=== PATIENT | female | born 1995 | race Caucasian/White ===

== ENCOUNTER → 2023-06-23 10:06 | Outpatient (REF) | payer BC, SELFPAY ==
[2023-06-23 11:19] LABS: ALT (SGPT) 20 U/L (0-35); AST (SGOT) 30 U/L (14-36); Albumin 4.3 g/dl (3.5-5.0); Alkaline Phosphatase 68 U/L (38-126); Blood Urea Nitrogen 14 mg/dl (7-17); Calcium 9.5 mg/dl (8.4-10.2); Carbon Dioxide 26 mmol/L (22-30); Chloride 103 mmol/L (98-107); Glucose 82 mg/dl (70-99); HDL Cholesterol 92 mg/dl; LDL Cholesterol, Calculated 48 mg/dl; Potassium 3.9 mmol/L (3.5-5.1); Sodium 138 mmol/L (135-145); Total Bilirubin 0.7 mg/dl (0.2-1.3); Total Cholesterol 151 mg/dl (50-199); Triglyceride 55 mg/dl (10-149); Very Low Density Lipoprotein 11 mg/dl (0-30); eGFR > 60.00
== END ==
LOC: REG 10:06
PROVIDERS: ATTENDING PHYSICIAN Nurse Practitioner
DX: Z00.00 Encounter for general adult medical examination without abnormal findings (principal)
CPT/HCPCS: 36415; 80053; 80061

== ENCOUNTER → 2025-03-09 08:47 | Outpatient (REF) | payer OTHER, SELFPAY ==
--- NOTE | 2025-03-09 14:57 | OID.BR.INTR ---
[facility] Breast Navigator - Initial
- -
Date of Contact: 03/09/25
Met with patient. Patient given written information on navigator service available at [facility]. Will follow up as needed per protocol.
== END ==
LOC: WDC 08:47
PROVIDERS: ATTENDING PHYSICIAN Obstetrics & Gynecology; FAMILY PHYSICIAN Nurse Practitioner
DX: N63.22 Unspecified lump in the left breast, upper inner quadrant (principal)
CPT/HCPCS: 19083; 19084; 76642; 77062; 77066; 88305; 88342; 88360; A4648

== ENCOUNTER → 2025-03-23 11:53 | Outpatient (REF) | payer BC, OTHER, SELFPAY ==
[2025-03-23 12:52] LABS: Glucose 83 mg/dl (70-99)
[2025-03-23 13:10] LABS: Vitamin D, 25-OH*** 88.6 ng/mL (30-80)
[2025-03-23 14:17] LABS: Beta HCG Quantitative 74.80 mIU/ml
== END ==
LOC: OIDL 11:53
PROVIDERS: ATTENDING PHYSICIAN Surgery
DX: C50.412 Malignant neoplasm of upper-outer quadrant of left female breast (principal)
CPT/HCPCS: 82306; 82947; 84702

== ENCOUNTER → 2025-03-25 13:09 | Outpatient (REF) | payer OTHER, SELFPAY ==
[2025-03-25 14:23] LABS: INR 1.00; PT 13.3 Sec (11.4-14.6)
[2025-03-25 14:24] LABS: APTT 29.4 Sec (23.4-35.0)
[2025-03-25 14:25] LABS: Hematocrit 39.7 % (37.0-47.0); Hemoglobin 14.3 g/dL (12.0-16.0); Mean Corp Hgb Conc. 36.0 g/dL (33.0-37.0); Mean Corpuscular Volume 88.0 fL (81.0-99.0); Nucleated Red Blood Cells % 0 %; Platelet Count 196 10^3/uL (130-400); Red Cell Dist. Width 11.3 % (11.5-14.5)
[2025-03-25 14:57] LABS: ALT (SGPT) 18 U/L (0-35); AST (SGOT) 23 U/L (14-36); Albumin 4.3 g/dl (3.5-5.0); Alkaline Phosphatase 61 U/L (38-126); Blood Urea Nitrogen 17 mg/dl (7-17); Calcium 9.4 mg/dl (8.4-10.2); Carbon Dioxide 24 mmol/L (22-30); Chloride 101 mmol/L (98-107); Glucose 86 mg/dl (70-99); Potassium 3.8 mmol/L (3.5-5.1); Sodium 132 mmol/L (135-145); Total Protein 6.8 g/dl (6.3-8.2); eGFR > 60.00
[2025-03-25 16:18] LABS: Hepatitis B Surface Antigen Negative (Negative)
[2025-03-25 16:36] LABS: Hepatitis C Antibody Negative (Negative)
== END ==
LOC: REG 13:09
PROVIDERS: ATTENDING PHYSICIAN Internal Medicine; FAMILY PHYSICIAN Nurse Practitioner; OTHER PHYSICIAN Nurse Practitioner Adult Health; OTHER PHYSICIAN Obstetrics & Gynecology
DX: C50.412 Malignant neoplasm of upper-outer quadrant of left female breast (principal); Z17.0 Estrogen receptor positive status [ER+]; Z01.812 Encounter for preprocedural laboratory examination; C50.212 Malignant neoplasm of upper-inner quadrant of left female breast; Z34.90 Encounter for supervision of normal pregnancy, unspecified, unspecified trimester; Z51.11 Encounter for antineoplastic chemotherapy
CPT/HCPCS: 36415; 80053; 84702; 85025; 85610; 85730; 86704; 86706; 86803; 87340

== ENCOUNTER → 2025-03-28 11:00 | Outpatient (REF) | payer OTHER, SELFPAY | LOC: RAD 11:00 | PROVIDERS: ATTENDING PHYSICIAN Internal Medicine; FAMILY PHYSICIAN Nurse Practitioner; REFERRING PHYSICIAN Obstetrics & Gynecology | DX: C50.212 Malignant neoplasm of upper-inner quadrant of left female breast (principal); Z17.0 Estrogen receptor positive status [ER+]; Z34.90 Encounter for supervision of normal pregnancy, unspecified, unspecified trimester; Z51.11 Encounter for antineoplastic chemotherapy | CPT/HCPCS: 71046 ==

== ENCOUNTER → 2025-03-29 07:20 | Outpatient (REF) | payer OTHER, SELFPAY | LOC: HWRAD 07:20 | PROVIDERS: ATTENDING PHYSICIAN Internal Medicine; FAMILY PHYSICIAN Nurse Practitioner; REFERRING PHYSICIAN Obstetrics & Gynecology | DX: C50.212 Malignant neoplasm of upper-inner quadrant of left female breast (principal); Z17.0 Estrogen receptor positive status [ER+]; Z34.90 Encounter for supervision of normal pregnancy, unspecified, unspecified trimester; Z51.11 Encounter for antineoplastic chemotherapy | CPT/HCPCS: 76700 ==